=== PATIENT | male | born 1975 | race Caucasian/White ===

== ENCOUNTER 2023-02-11 09:40 | Day surgery (SDC) | payer OTHER ==
[2023-02-11] VITALS (11 sets, daily range): BP systolic 92–143; BP diastolic 56–91
[~2023-02-11] VITALS: Ht 190.5 cm; Wt 128.3 kg
[~2023-02-11 09:40] MED LIST: ROSU10TA PO
--- NOTE | 2023-02-11 10:49 | NUR ---
Ambulatory in Day Surgery. Patient states colon prep results clear with green tint, denies sediment. Pre-Op teaching done. Pt verbalizes understanding. Lungs clear T/O to Auscultation. History, Chart, Medications and Allergies reviewed before start of procedure. Patient confirms NPO status and agrees with scheduled surgery.
--- NOTE | 2023-02-11 11:21 | NUR ---
02/11/23 1121 Lorenzo Cunningham HISTORY, CHART, MEDICATIONS AND ALLERGIES REVIEWED BEFORE START OF PROCEDURE. PATIENT CONFIRMS NPO STATUS AND AGREES WITH SCHEDULED PROCEDURE. 3-LEAD EKG REVIEWED WITH PHYSICIAN PRIOR TO START OF PROCEDURE. MONITOR INTACT WITH CONTINUOUS PULSE OXIMETRY,CAPNOGRAPHY, 3-LEAD EKG, INTERMITTENT BP. SUPPLEMENTAL O2 TO BE TITRATED THROUGHOUT PROCEDURE TO MAINTAIN O2 SATURATION ABOVE 90%. PATIENT DETERMINED TO BE ASA APPROPRIATE FOR PROPOFOL SEDATION PRIOR TO START OF PROCEDURE BY
--- NOTE | 2023-02-11 11:55 | NUR ---
DISCHARGE NOTE PT A&OX4, VSS, BREATHING RA, TOLERATING PO FLUIDS, ABD SOFT AND NON TENDER. Discharge instructions reviewed with patient. Patient verbalizes understanding. Copy given to patient to take home. Discharged via wheelchair to private car for ride home.
== END 2023-02-11 12:00 | disposition home or self-care (01) ==
LOC: ORSCMMR 09:40 → ORD 10:30 → ORSCMMR 12:00
PROVIDERS: Internal Medicine Gastroenterology
PROC: 0DBP8ZX Excision of Rectum, Via Natural or Artificial Opening Endoscopic, Diagnostic (ICD-10-PCS; principal; 2023-02-11 10:30)
PROC: 0DBH8ZX Excision of Cecum, Via Natural or Artificial Opening Endoscopic, Diagnostic (ICD-10-PCS; principal; 2023-02-11 10:30)
PROC: 0DBN8ZX Excision of Sigmoid Colon, Via Natural or Artificial Opening Endoscopic, Diagnostic (ICD-10-PCS; principal; 2023-02-11 10:30)
DX: K62.5 Hemorrhage of anus and rectum (principal); D12.8 Benign neoplasm of rectum; D12.5 Benign neoplasm of sigmoid colon; D12.0 Benign neoplasm of cecum; K62.1 Rectal polyp; E78.00 Pure hypercholesterolemia, unspecified; Z79.899 Other long term (current) drug therapy
CPT/HCPCS: 88305; J2704; J7120

== ENCOUNTER 2024-06-03 11:36 | Day surgery (SDC) | payer OTHER ==
[~2024-06-03] VITALS: Ht 193 cm; Wt 134.1 kg
[~2024-06-03 11:36] MED LIST changes: +Lactated Ringer's 1,000 ML IV ONE
[2024-06-03] MEDS ORDERED: Dexamethasone Sod Phos 10 MG/ML 1ML VIAL ONE ×2 (11:44→11:47)
[2024-06-03] MEDS ORDERED: Ondansetron HCl 2 MG / ML 2ML Vial ONE ×2 (11:44→11:47)
[2024-06-03] MEDS ORDERED: FentaNYL Citrate 50 MCG/ML 2 ML Injection ONE ×2 (11:45→15:01)
[2024-06-03] MEDS ORDERED: propofoL 20 ML IV ONE (11:45)
[2024-06-03] MEDS ORDERED: Ketorolac Tromethamine 30mg Vial ONE (11:47)
[2024-06-03] MEDS ORDERED: CeFAZolin Sodium 3,000 MG in NS 100 ML IV SCH (12:10)
[2024-06-03] MEDS ORDERED: Lactated Ringer's 1,000 ML IV ONE (12:20)
[2024-06-03] MEDS ORDERED: Clindamycin 900mg in D5W 50ML 50 ML IV ONE (12:58)
[2024-06-03] MEDS ORDERED: ePHEDrine Sulfate 50 MG/ML 1ML Injection ONE (13:13)
[2024-06-03] MEDS ORDERED: EPINEPhrine HCl 1 MG/ML 1ML Amp XX ONE (13:22)
[2024-06-03] MEDS ORDERED: Ropivacaine 0.5% HCl/Pf 5 MG/ML 20ML VIAL INJ ONE (13:22)
[2024-06-03] MEDS ORDERED: Ropivacaine 0.5% HCL/PF 5 MG/ML 30ML Vial ONE (13:27)
--- NOTE | 2024-06-03 13:35 | NUR ---
06/03/24 1335 Rachel Bingham ROPIVACAINE 0.5% 30 ML MIXED & VERIFIED W/ EPI 0.15 ML (1MG/ML) TO MAKE ROPIVACAINE 0.5% 1:200,000 FOR INJECTION AT OPSITE BY DR HAWLEY.
[2024-06-03] MEDS ORDERED: TraMADol HCl 50 MG Tab ONE (14:49)
[2024-06-03 15:10] VITALS: BP 146/83
--- NOTE | 2024-06-03 15:42 | NUR ---
06/03/24 1542 DUNIA TYSON PT ONLY HAD 200ML LEFT OF LR COMING OUT OF OR TO PACU.
== END 2024-06-03 15:30 | disposition home or self-care (01) ==
LOC: ORSCSDS 11:36
PROVIDERS: Orthopaedic Surgery
PROC: 01N40ZZ Release Ulnar Nerve, Open Approach (ICD-10-PCS; principal; 2024-06-03 13:45)
PROC: 01N54ZZ Release Median Nerve, Percutaneous Endoscopic Approach (ICD-10-PCS; principal; 2024-06-03 13:45)
DX: G56.21 Lesion of ulnar nerve, right upper limb (principal); G56.01 Carpal tunnel syndrome, right upper limb; I10 Essential (primary) hypertension; G47.33 Obstructive sleep apnea (adult) (pediatric); E66.9 Obesity, unspecified; Z68.36 Body mass index [BMI] 36.0-36.9, adult
CPT/HCPCS: A9270; J0171; J0690; J1100; J1885; J2405; J2704; J2795; J3010; J7120

== ENCOUNTER 2024-11-25 09:31 | Day surgery (SDC) | payer OTHER ==
[~2024-11-25] VITALS: Ht 190.5 cm; Wt 127.5 kg
[2024-11-25] MEDS ORDERED: Lactated Ringer's 1,000 ML IV ONE (10:38)
[2024-11-25] MEDS ORDERED: CeFAZolin Sodium 3,000 MG VIAL ONE (10:40)
[2024-11-25] MEDS ORDERED: propofoL 20 ML IV ONE ×3 (11:23→11:44)
[2024-11-25] MEDS ORDERED: Bupivacaine 0.5% W/EPI 1:200000 SDV 30ML INJ ONE ×2 (11:41)
[2024-11-25] MEDS ORDERED: FentaNYL Citrate 50 MCG/ML 2 ML Injection ONE (11:54)
--- NOTE | 2024-11-25 12:06 | NUR ---
11/25/24 1206 Rachel Bingham CELLERATE USED PER DR HAWLEY. EXP 08-26-2026 [id number]
[2024-11-25] MEDS ORDERED: Dexamethasone Sod Phos 10 MG/ML 1ML VIAL ONE (12:08)
[2024-11-25] MEDS ORDERED: Ondansetron HCl 2 MG / ML 2ML Vial ONE (12:08)
[2024-11-25] MEDS ORDERED: Ketorolac Tromethamine 30mg Vial ONE (12:08)
[2024-11-25] MEDS ORDERED: Glycopyrrolate 0.2 MG/ML 5ML VIAL ONE (12:10)
[2024-11-25 12:33] VITALS: BP 126/79
--- NOTE | 2024-11-25 12:50 | NUR ---
11/25/24 1249 Debbie Mora ASSUMED CARE OF PATIENT FROM GABRIELLE CASTELLANO
== END 2024-11-25 13:05 | disposition home or self-care (01) ==
LOC: ORSCSDS 09:31
PROVIDERS: Orthopaedic Surgery
PROC: 0R9M0ZZ Drainage of Left Elbow Joint, Open Approach (ICD-10-PCS; principal; 2024-11-25 11:30)
DX: T81.89XD Other complications of procedures, not elsewhere classified, subsequent encounter (principal); I10 Essential (primary) hypertension; G47.33 Obstructive sleep apnea (adult) (pediatric); Z87.891 Personal history of nicotine dependence
CPT/HCPCS: 87070; 87071; 87075; 87077; 87147; 87186; 87205; A6010; J0690; J1100; J1885; J2405; J2704; J3010; J7120